=== PATIENT | female | born 1950 | race Two or more races ===

== ENCOUNTER 2019-08-15 05:30 | Day surgery (SDC) | payer OTHER ==
[~2019-08-15 05:30] MED LIST: HYOSCYAMINE0.125 M1 SL; INTESTINEX1 CA1 PO; OXYC1TAB9 PO
== END 2019-08-15 09:45 | disposition home or self-care (01) ==
LOC: AMB-ENDOS 05:30 → ADM 13:30
PROVIDERS: ATTEND Surgery
DX: K62.89 Other specified diseases of anus and rectum (principal)